=== PATIENT | female | born 1930 | race Caucasian/White ===

== ENCOUNTER 2017-01-26 18:25 | Emergency (ER) | payer OTHER ==
[~2017-01-26] VITALS: Ht 152.4 cm; Wt 60.0 kg
[~2017-01-26 18:25] MED LIST: ATOR20TA PO; CARD240T2 PO; HYDR-3533 PO; KONS520C PO; LORA10TA7 PO; OCUVTAB PO; PLAV75TA PO; PREG25 PO; TOPR100T15 PO
[2017-01-26 18:35] VITALS: BP 153/74; PULSE 67; RESP 18; TEMP 98
[2017-01-26 18:49] VITALS: BP 153/74; PULSE 67; RESP 18; TEMP 98.9; O2SAT 99
--- NOTE | 2017-01-26 18:54 | PD ---
HPI Chief Complaint: Fall Time Seen by Provider: 18:40 Travel History International Travel<30 days: No Contact w/Intl Traveler<30days: No Traveled to known affect area: No History of Present Illness HPI Patient comes in by EMS complaining of low back and rib pain after a mechanical fall off the toilet yesterday. Patient denies any syncopal episode, loss of consciousness, chest pain pre-or post fall, shortness of breath, headache, numbness or tingling anywhere, loss or change in bowel or bladder, or fevers. Patient states pain got worse today. States pain is worse with certain movement and coughing. PFSH Past Medical History Hx Anticoagulant Therapy: Yes (PLAVIX ) Arthritis: Yes Asthma: No Autoimmune Disease: No Blood Disorders: No Anxiety: No Depression: No Heart Rhythm Problems: No Cancer: No Cardiovascular Problems: Yes (HTN ) High Cholesterol: Yes Chemotherapy: No Chest Pain: No Congestive Heart Failure: No COPD: No Cerebrovascular Accident: Yes (hx TIA) Coronary Artery Disease: Yes Diabetes: No Diminished Hearing: Yes ([place]) Endocrine: No GERD: Yes Glaucoma: No Genitourinary: No Headaches: No Hepatitis: No Hiatal Hernia: Yes Hypertension: Yes Immune Disorder: No Kidney Stones: No Musculoskeletal: Yes Neurologic: Yes Psychiatric: No Reproductive: No Respiratory: Yes (post nasal drip) Immunizations Current: Yes Migraines: No Myocardial Infarction: No Radiation Therapy: No Renal Failure: No Seizures: No Sickle Cell Disease: No Sleep Apnea: No Thyroid Disease: No Ulcer: No ?: Not Menopausal: Yes Past Surgical History Abdominal Surgery: Yes (see below) AICD: No Appendectomy: Yes Arteriovenous Shunt: No Cardiac Surgery: Yes (cardiac cath 2009) Cholecystectomy: Yes Ear Surgery: No Endocrine Surgery: No Eye Surgery: Yes (catatract both eyes) Genitourinary Surgery: No Gynecologic Surgery: Yes Insulin Pump: No Joint Replacement: Yes (knee, hip replacement on left side ) Oral Surgery: Yes (crowns) Pacemaker: No Thoracic Surgery: No Other Surgery: Yes Social History Alcohol Use: Yes (sm glass wine every night) Tobacco Use: No Substance Use: No Allergies-Medications (Allergen,Severity, Reaction): Coded Allergies: No Known Allergies (Verified , 06/29/15) Reported Meds & Prescriptions Reported Meds & Active Scripts Active Reported Lortab 5 mg/325 mg (Hydrocodone/Acetaminophen 5 mg/325 mg) 1 Tab 1 Tab PO Q4-6H PRN Plavix (Clopidogrel Bisulfate) 75 Mg Tab 75 Mg PO DAILY Cardizem La 240 mg (Diltiazem La 240 mg) 240 Mg Tab 1 Tab PO HS Metamucil (Psyllium Hydrophilic Mucilloid) 0.52 Gm Cap 1 Cap PO DAILY PRN Ocuvite (Vit A/Vit C/Vit E/Selen/Cu/Zn/Lutei) Tab 1 Tab PO HS Atorvastatin 20 mg tab (Atorvastatin Calcium) 20 Mg Tab 20 Mg PO HS Lyrica (Pregabalin) 25 Mg Cap 25 Mg PO TID PRN Claritin (Loratadine) 10 Mg Tab 10 Mg PO DAILY PRN Toprol XL (Metoprolol Succinate) 100 Mg Tab 100 Mg PO DAILY Review of Systems Except as stated in HPI: all other systems reviewed are Neg Physical Exam Narrative GENERAL: Well-developed, overly nourished, in no acute distress, and non-ill appearing. SKIN: Focused skin assessment warm and dry. HEAD: Atraumatic. Normocephalic. EYES: Pupils equal and round. EOMI. No scleral icterus. No injection or drainage. ENT: No nasal bleeding or discharge. Mucous membranes pink and moist. NECK: Trachea midline. Supple. No nuclear rigidity. CARDIOVASCULAR: Regular rate and rhythm. No murmur appreciated. RESPIRATORY: No accessory muscle use. No respiratory distress. Clear to auscultation. Breath sounds equal bilaterally. No crepitus or step-off noted bilateral rib cage. Patient reports tenderness to palpation bilateral posterior rib cage. GASTROINTESTINAL: Abdomen soft, non-tender, nondistended. Hepatic and splenic margins not palpable. No pulsatile mass. MUSCULOSKELETAL: No obvious deformities. No clubbing. No cyanosis. No edema. Full range of motion. Hip: FROM and equal BL with passive flexion, extension, Abduction, Adduction, and internal/external rotation. Pulses equal BL distal to injury. Capillary refill less than 2 seconds distal to injury and equal BL. FROM distal to injury and equal BL. Strength distal to injury equal BL. NV intact distal to injury and equal BL. Plantar flexion and dorsal flexion equal BL. Dorsal pulses equal BL. Sensation equal BL 1st web space. No crepitus or tenderness over midline of lumbar spine. Patient reports that his palpation. Keep spinal muscles lumbar spine. NEUROLOGICAL: Awake and alert. No obvious cranial nerve deficits. Motor grossly within normal limits. Normal speech. PSYCHIATRIC: Appropriate mood and affect; insight and judgment normal. Data Data Last Documented VS Vital Signs Date Time Temp Pulse Resp B/P Pulse Ox O2 Delivery O2 Flow Rate FiO2 01/26/17 18:49 98.9 67 18 153/74 99 Room Air Orders Spine, Lumbar - Ltd (Ap & Lat) (01/26/17 ) Chest, Pa & Lat (01/26/17 ) Wound Care (01/26/17 19:39) Resp Incentive Spirometry (01/26/17 ) MDM Medical Decision Making Medical Screen Exam Complete: Yes Emergency Medical Condition: Yes Interpretation(s) Chest x-ray read by the radiologist shows: 1. Multiple lower right lateral rib fractures without significant pneumothorax. 2. Cardiomegaly with chronic basilar scarring, large hiatal hernia. Lumbar spine x-ray read by the radiologist shows: Mild smooth endplate depressions of the lumbar spine likely related to osteoporosis. No definite acute fracture or subluxation. Differential Diagnosis Fracture, strain, contusion, other Narrative Course 1944 patient's at bedside reports patient fell yesterday. Denies any loss of consciousness change in mental status. States he contacted the primary care doctor yesterday, who felt the patient's pain was coming from her ribs. reports patient's only seems to once every once while using her walker since the fall as a pain on her right side. Reports her tetanus shot is up-to- date. The patient suffered rib fracture. There is no clinical evidence to suggest intrathoracic injury nor cardiac injury at this time. There was no clinical evidence to suggest flail chest. The patient moves air well without difficulty and is clear to auscultation. Heart sounds are audible without rubs, murmurs or gallops. There is no palpable crepitus. Pulses are symmetrical and strong. There is no significant tenderness over the lower chest to suggest injury to the liver nor spleen. Chest Xray was normal without evidence of pneumothorax or hemothorax. The mediastinum appeared within normal limits. Diagnosis was discussed with the patient. The patient was discharged with a Inspiratory Spirometer after training. The patient is to return if develops any worsening pain, difficulty breathing, or if coughs up blood or develops fever. Patient and agrees with plan and was recommended to follow up with their regular physician. Patient presents with apparent back strain. The patient presented complaining of back pain. There was history of preceding trauma. X-rays were obtained and no obvious fracture or acute disease was noted at this time. The patient has no neurological complaints. The patient has been behaving normally and no notable altered mental status. Naa score of 15. The patients neurological exam is normal with normal motor and sensory. There is no saddle paresthesias reported and no bowel or bladder incontinence or retention. . The patients evaluation was consistent with soft tissue injury and not consistent with bony injury. Clinical suspicion, plan of care and management was discussed with the patient. The patient was instructed to follow up with their health care provider. The patient was also instructed to return if the pain worsened, changed, or developed weakness or bowel or bladder trouble. The patient and agreed with plan. There was no evidence to support genitourinary etiology. There is also no evidence to suggest vascular pathology such as AAA dissection. No fevers or other evidence to suspect infectious processes, abscess etc. Patient in no obvious distress upon re-evaluation. All pertinent Radiology result(s) discussed with patient and . Discussed patient with Dr. Zhu prior to discharge, who is in agreement with plan of care and disposition. Patient was asked if they wanted to speak to my attending, which the patient did not wish to do at this time. Any questions/concerns in reference to patient diagnosis/condition discussed and clarified prior to patient's discharge. Reinforced sheer importance of close follow up with patient 's primary physician or primary care clinic. Instructed patient to return to ED immediately, if symptoms return/worsen. Pt and showed understanding of above instructions. Further instructions and recommendations were detailed in discharge paperwork. Pt left without difficulty out of ED at discharge. Diagnosis Primary Impression: Right rib fracture Qualified Code: S22.41XA - Closed fracture of multiple ribs of right side, initial encounter Additional Impressions: Low back strain Qualified Code: S39.012A - Low back strain, initial encounter Skin tear of elbow without complication Qualified Code: S51.011A - Skin tear of elbow without complication, right, initial encounter Patient Instructions: Acute Wound Care (ED), General Instructions, Low Back Strain (ED), Rib Fracture (DC), Skin Tear (ED) Additional Instructions: Follow-up with your primary care physician in 2-3 days for evaluation. Use over -the-counter Tylenol as needed for pain. Follow instructions on the packaging. Apply ice to affected area 20/h as needed for pain. Use incentive spirometer 10 times per hour as instructed to decrease chance of pneumonia. Return to the emergency department if symptoms get worse. Disposition: 01 DISCHARGE HOME Condition: Johnny Malik Jan 26, 2017 18:54
--- NOTE | 2017-01-26 19:27 | RADRPT ---
EXAM DATE/TIME: 01/26/2017 18:57 [facility] COMPARISON: CHEST SINGLE AP, June 29, 2015, 11:13. INDICATIONS : Chest pain following fall at home. MEDICAL HISTORY : None. SURGICAL HISTORY : None. ENCOUNTER: Initial ACUITY: 2 days PAIN SCORE: 5/10 LOCATION: Bilateral chest FINDINGS: Compare June 2015. Then multiple lower right lateral rib fractures involving at least the fifth, sixth, seventh and eighth ribs. Again seen is cardiomegaly. There is a large air-filled hiatal hernia. Basilar atelectasis and scarr ing again noted. Calcified mediastinal and left hilar lymph nodes. No new effusion. Chronic scarring at the left costophrenic angle. CONCLUSION: 1. Multiple lower right lateral rib fractures without significant pneumothorax. 2. Cardiomegaly with chronic basilar scarring, large hiatal hernia. Byron Jean Baptiste MD on January 26, 2017 at 19:22 Board Certified Radiologist. This report was verified electronically.
--- NOTE | 2017-01-26 19:28 | RADRPT ---
EXAM DATE/TIME: 01/26/2017 18:58 [facility] COMPARISON: No previous studies available for comparison. INDICATIONS : Lower back pain after fall at home. MEDICAL HISTORY : None. SURGICAL HISTORY : None. ENCOUNTER: Initial ACUITY: 2 days PAIN SCORE: 8/10 LOCATION: lumbar FINDINGS: There is a moderate rotatory levoscoliosis. No definite acute fracture in the lumbar spine. Mild endp late depressions characteristic of osteopenia. Previous left hip are placement. CONCLUSION: 1. Mild smooth endplate depressions of the lumbar spine likely related to osteoporosis. No definite a cute fracture or subluxation. Byron Jean Baptiste MD on January 26, 2017 at 19:25 Board Certified Radiologist. This report was verified electronically.
== END 2017-01-26 21:22 | disposition home or self-care (01) ==
LOC: NEPC 18:25
DX: S39.012A Strain of muscle, fascia and tendon of lower back, initial encounter (principal); S22.41XA Multiple fractures of ribs, right side, initial encounter for closed fracture; S51.011A Laceration without foreign body of right elbow, initial encounter; Z79.02 Long term (current) use of antithrombotics/antiplatelets; I10 Essential (primary) hypertension; E78.00 Pure hypercholesterolemia, unspecified; Z86.73 Personal history of transient ischemic attack (TIA), and cerebral infarction without residual deficits; I25.10 Atherosclerotic heart disease of native coronary artery without angina pectoris; W18.11XA Fall from or off toilet without subsequent striking against object, initial encounter; Y93.E8 Activity, other personal hygiene; Y92.002 Bathroom of unspecified non-institutional (private) residence as the place of occurrence of the external cause; Y99.8 Other external cause status
CPT/HCPCS: 71020; 72100; 94150; 99284